=== PATIENT | female | born 1995 | race African-American/Black ===

== ENCOUNTER 2023-06-30 12:00 | Emergency (ER) | payer MEDICAID, OTHER ==
[~2023-06-30] VITALS: Ht 170.2 cm; Wt 70.5 kg
[2023-06-30 12:32] LABS: Urine Bacteria None Seen /hpf (None Seen)
[2023-06-30 12:44] VITALS: BP 149/93; PULSE 72; RESP 18; TEMP 97.4; O2SAT 97
[2023-06-30 12:53] LABS: Urine Blood Negative /uL (Negative); Urine Budding Yeast OCCASIONAL /hpf (None Seen); Urine Clarity Turbid (Clear); Urine Color Yellow (Yellow); Urine Mucus FEW (None Seen); Urine Protein, UAD TRACE (Negative); Urine Specific Gravity 1.032 (1.001-1.035); Urine Urobilinogen Normal (Negative); Urine WBC 8 /hpf (0 - 5)
== END 2023-06-30 13:36 | disposition home or self-care (01) ==
LOC: ER 12:00
DX: R10.2 Pelvic and perineal pain (principal); Z32.02 Encounter for pregnancy test, result negative
CPT/HCPCS: 36415; 81001; 81025; 84702

== ENCOUNTER 2023-07-18 11:47 | Emergency (ER) | payer MEDICAID ==
[~2023-07-18] VITALS: Ht 170.2 cm; Wt 71.0 kg
[2023-07-18 13:35] VITALS: BP 139/73; PULSE 85; RESP 16; TEMP 98.7; O2SAT 98
[2023-07-18 14:25] LABS: Urine Bacteria None Seen /hpf (None Seen)
[2023-07-18 14:59] LABS: Urine Blood Negative /uL (Negative); Urine Clarity Clear (Clear); Urine Color Light-Yellow (Yellow); Urine Protein, UAD Negative (Negative); Urine Specific Gravity 1.026 (1.001-1.035); Urine Urobilinogen Normal (Negative); Urine WBC <1 /hpf (0 - 5); Urine pH 5.5 (5.0-9.0)
== END 2023-07-18 15:10 | disposition home or self-care (01) ==
LOC: ER 11:47
DX: Z32.02 Encounter for pregnancy test, result negative (principal); R10.2 Pelvic and perineal pain
CPT/HCPCS: 36415; 81001; 84702

== ENCOUNTER 2023-08-14 12:35 | Emergency (ER) | payer MEDICAID ==
[~2023-08-14] VITALS: Ht 170.2 cm; Wt 70.9 kg
[2023-08-14 12:36] VITALS: BP 119/78; PULSE 93; RESP 18; O2SAT 99
[2023-08-14] MEDS ORDERED: LIDO5DIS21 TOP (14:17)
[2023-08-14] MEDS ORDERED: ACETAMINOPHEN 325 MG TAB PO ONE (14:30)
[2023-08-14] MEDS ORDERED: LIDOCAINE 5% TOPICAL PATCH TOP ONE (14:30)
[2023-08-14] MEDS ORDERED: IBUPROFEN 400 MG TAB PO ONE (14:30)
[2023-08-14 14:37] LABS: Urine Bacteria None Seen /hpf (None Seen)
[2023-08-14 14:53] LABS: Urine Blood Negative /uL (Negative); Urine Clarity Turbid (Clear); Urine Color Yellow (Yellow); Urine Mucus FEW (None Seen); Urine Protein, UAD 1+ (Negative); Urine Specific Gravity 1.035 (1.001-1.035); Urine Urobilinogen Normal (Negative); Urine WBC 1 /hpf (0 - 5)
== END 2023-08-14 16:22 | disposition left against medical advice (07) ==
LOC: ER 12:35
DX: S29.012A Strain of muscle and tendon of back wall of thorax, initial encounter (principal); E86.0 Dehydration; F17.290 Nicotine dependence, other tobacco product, uncomplicated; X58.XXXA Exposure to other specified factors, initial encounter; Y93.89 Activity, other specified; Y92.89 Other specified places as the place of occurrence of the external cause; Y99.8 Other external cause status
CPT/HCPCS: 81001

== ENCOUNTER 2023-09-29 11:37 | Emergency (ER) | payer MEDICAID ==
[~2023-09-29] VITALS: Ht 170.2 cm; Wt 69.6 kg
[~2023-09-29 11:37] MED LIST: LIDO5DIS21 TOP
[2023-09-29 13:24] LABS: Urine Bacteria FEW /hpf (None Seen); Urine Blood Negative /uL (Negative); Urine Clarity Cloudy (Clear); Urine Color Yellow (Yellow); Urine Mucus FEW (None Seen); Urine Protein, UAD TRACE (Negative); Urine Specific Gravity 1.022 (1.001-1.035); Urine Urobilinogen Normal (Negative); Urine WBC 6 /hpf (0 - 5)
[2023-09-29 13:42] VITALS: PULSE 91; RESP 16; O2SAT 99
[2023-09-29 14:42] VITALS: BP 130/75; PULSE 86; RESP 16; TEMP 98.1; O2SAT 99
== END 2023-09-29 14:40 | disposition home or self-care (01) ==
LOC: ER 11:37
DX: O26.891 Other specified pregnancy related conditions, first trimester (principal); R10.2 Pelvic and perineal pain; Z3A.11 11 weeks gestation of pregnancy
CPT/HCPCS: 36415; 76801; 81001; 84702

== ENCOUNTER 2024-01-24 11:39 | Emergency (ER) | payer MEDICAID ==
[~2024-01-24] VITALS: Ht 170.2 cm; Wt 83.8 kg
[2024-01-24 12:26] VITALS: BP 125/64; PULSE 86; RESP 19; TEMP 97.7; O2SAT 99
[2024-01-24] MEDS ORDERED: METH4PAK PO (13:07)
--- NOTE | 2024-01-24 13:07 | ED.PDOC ---
Eye-HPI HPI Comments A 28 YEAR OLD FEMALE PRESENTS TO THE ED WITH COMPLAINT OF NASAL CONGESTION. PATIENT STATES SHE HAS BEEN EXPERIENCING NASAL CONGESTION FOR THE PAST 1 WEEK. PATIENT NOTES SHE IS CURRENTLY 24 WEEKS . PATIENT DENIES FEVER, CHILLS, SHORTNESS OF BREATH, CHEST PAIN, ABDOMINAL PAIN, NAUSEA, VOMITING, HEADACHE, OR OTHER COMPLAINTS. NO OTHER SYMPTOMS OR MODIFYING FACTORS AT THIS TIME. PATIENT IS ALERT, ORIENTED X 4, AND HAS STEADY GAIT. Chief Complaint: Sore Throat Time Seen by MD: 11:51 Primary Care Provider: unknown Reviewed Notes: Nurses Notes, Medications, Allergies Allergies: Coded Allergies: NO KNOWN ALLERGIES (Unverified , 06/30/23) Home Meds Active Scripts Methylprednisolone (Medrol Dosepak) 4 Mg Jignesh, 4 MG PO UD, #21 TAB UAD Prov:MARELY MELGAR 01/24/24 Lidocaine (LIDODERM 5% TOPICAL PATCH) 1 Patch Ph, 1 PATCH TOP DAILY, #30 PATCH 1 Refill Prov:ESTEVAN SHARIF MD 08/14/23 Information Source: Patient Mode of Arrival: Ambulatory Timing: Days Duration: Since onset, Days Prehospital treatment: None Lids: Normal Conjunctiva: Normal Cornea: Normal Pupils: Normal EOM: Normal Fundus: Normal Slit lamp exam: Normal Anterior chamber: Normal Mouth: Normal ENT Ear Exam: Normal, Normal, Normal Nose: Normal Sinuses: Normal Oropharynx: Normal Onset: Spontaneous Throat Exposed to: None History of: None Last Tetanus: Unknown Modifying factors: Nothing Associated signs and symptoms: Nasal Symptoms Past Medical History PAST MEDICAL HISTORY: Denies Surgical History: Denies all surgeries SENIOR PARTNER History: No Pertinent SENIOR PARTNER History Family History Family History: Reviewed,noncontributory to illness Social History Smoker: Non-Smoker, Other Alcohol: Heavy Drugs: Denies Drug Use Lives In: Home Constitutional: denies: chills, diaphoresis, fatigue, fever, malaise, sweats, weakness, others EENTM: reports: nose congestion; denies: blurred vision, double vision, ear bleeding, ear discharge, ear drainage, ear pain, ear ringing, eye pain, eye redness, hearing loss, mouth pain, mouth swelling, nasal discharge, nose bleeding, nose pain, photophobia, tearing, throat pain, throat swelling, voice changes, others Respiratory: denies: cough, hemoptysis, orthopnea, SOB at rest, shortness of breath, SOB with excertion, stridor, wheezing, others Cardiovascular: denies: chest pain, dizzy spells, diaphoresis, Dyspnea on exertion, edema, irregular heart beat, left arm pain, lightheadedness, palpitations, PND, syncope, others Gastrointestinal: denies: abdomen distended, abdominal pain, blood streaked bowels, constipated, diarrhea, dysphagia, difficulty swallowing, hematemesis, melena, nausea, poor appetite, poor fluid intake, rectal bleeding, rectal pain, vomiting, others Genitourinary: reports: ; denies: abnormal vagina bleeding, burning, dyspareunia, dysuria, flank pain, frequency, hematuria, incontinence, pain, vagina discharge, urgency, others Neurological: denies: dizziness, fainting, headache, left sided numbness, left sided weakness, numbness, paresthesia, pre-existing deficit, right sided numbness, right sided weakness, seizure, speech problems, tingling, tremors, w eakness, others Musculoskeletal: denies: back pain, gout, joint pain, joint swelling, muscle pain, muscle stiffness, neck pain, others Integumetry: denies: bruises, change in color, change in hair/nails, dryness, laceration, lesions, lumps, rash, wounds, others Allergic/Immunocompromised: denies: Difficulty Healing, Frequent Infections, Hives, Itching, others Hematologic/Lymphatic: denies: anemia, blood clots, easy bleeding, easy bruising, swollen glands, others Endocrine: denies: excessive hunger, excessive sweating, excessive thirst, excessive urination, flushing, intolerance to cold, intolerance to heat, unexplained weight gain, unexplained weight loss, others Psychiatric: denies: anxiety, bipolar disorder, depression, hopeless, panic disorder, schizophrenia, sleepless, suicidal, others All Other Systems: Reviewed and Negative Physical Exam General Appearance: No Apparent Distress, Normal HEENT: Normal ENT Inspection, Pharynx Normal, TMs Normal, Other (NASAL CONGESTION WITH POST NASAL DRIP. ) Neck: Full Range of Motion, Non-Tender, Normal, Normal Inspection Respiratory: Chest Non-Tender, Lungs Clear, No Accessory Muscle Use, No Respi ratory Distress, Normal Breath Sounds Cardiovascular: No Edema, No JVD, No Murmur, No Gallop, Normal Peripheral Pulses, Regular Rate/Rhythm Breast Exam: Deferred Gastrointestinal: No Organomegaly, Non Tender, No Pulsatile Mass, Normal Bowel Sounds, Soft Genitalia: Deferred Pelvic: Deferred Rectal: Deferred Extremities: No calf tenderness, Normal capillary refill, Normal inspection, Normal range of motion, Non-tender, No pedal edema Musculoskeletal : Apperance: Normal Neurologic: Alert, philosophy instructor II-XII nml as Tested, No Motor Deficits, Normal Affect, Normal Mood, No Sensory Deficits Cerebellar Function: Normal Reflexes: Normal Skin: Dry, Normal Color, Warm Peripheral Pulses: 2+ carotid (R), 2+ carotid (L) Lymphatic: No Adenopathy Was a procedure done? Was a procedure done?: No EENT DIFF Eye: N/A Ear: Otitis Media, Pharyngitis, Sinusitis Nose: N/A Mouth: N/A Sore Throat: N/A X-Ray, Labs, Meds, VS Vital Signs Date Time Temp Pulse Resp B/P (MAP) Pulse Ox O2 Delivery O2 Flow Rate FiO2 01/24/24 12:26 86 19 99 Room Air 01/24/24 12:26 97.7 86 19 125/64 (84) 99 97.7 01/24/24 11:53 97.7 86 19 125/64 (84) 99 X-Ray, Labs, Meds, VS Comment EXTERNAL MEDICAL RECORDS REVIEWED: [NONE] INDEPENDENT HISTORIANS: [NONE] SOCIAL DETERMINANTS OF HEALTH: [NONE] LABS ORDERED: NONE REVIEWED AND INTERPRETED RESULTS: NONE IMAGING ORDERED: NONE TREATMENTS ORDERED: NONE PROCEDURES PERFORMED: NONE CRITICAL CARE TIME: NONE I HAVE DISCUSSED THE PATIENT WITH THE ATTENDING PHYSICIAN DR. HAMILTON AND HE AGREES WITH THE PATIENT'S PLAN OF CARE AND DISPOSITION. BASED ON HISTORY OF PRESENT ILLNESS, AND PHYSICAL EXAM, PATIENT WILL BE DISCHARGED HOME. DISCUSSED PLAN FOR DISCHARGE HOME WITH RX [MEDROL DOSE PACK]. MEDICATION WARNINGS GIVEN. SHARED DECISION MAKING: PATIENT INSTRUCTED TO FOLLOW UP WITH PRIMARY CARE PROVIDER IN 1-2 DAYS FOR RE-EVALUATION OF SYMPTOMS. PATIENT VERBALIZES UNDERSTANDING TO RETURN TO ED FOR NEW OR WORSENING SYMPTOMS OR IF FOLLOW UP WITH PCP CANNOT BE OBTAINED. PATIENT FEELS COMFORTABLE GOING HOME AT THIS TIME. ALL QUESTIONS ADDRESSED AT TIME OF DISCHARGE. Time of 1ST Reevaluation: 13:10 Reevaluation 1ST: Improved Patient Education/Counseling: Diagnosis, Treatment, Need For Follow Up Family Education/Counseling: Diagnosis, Treatment, Need For Follow Up Medical Screening: No EMC Exist At This Time Departure 1 Departure Time of Disposition: 13:20 Impression: Primary Impression: Nasal congestion Disposition: HOME / SELF CARE / HOMELESS Condition: Stable Additional Instructions: FOLLOW-UP WITH PCP IN 1 TO 2 DAYS. TAKE MEDICATIONS PRESCRIBED. RETURN TO ED FOR ANY NEW OR WORSENING SYMPTOMS. e-Prescriptions Methylprednisolone (Medrol Dosepak) 4 Mg Jignesh 4 MG PO UD, #21 TAB UAD Prov: MARELY MELGAR 01/24/24 Discharged With: Self, Relative Critical Care Note Critical Care Time?: No Stability Stability form required: No I personally scribed for MARELY MELGAR ([email or web address]) on 01/24/24 at 13:07. Electronically submitted by Evan Steele ([email or web address]). MARELY MELGAR Jan 24, 2024 13:07
== END 2024-01-24 13:21 | disposition home or self-care (01) ==
LOC: ER 11:39
DX: O99.512 Diseases of the respiratory system complicating pregnancy, second trimester (principal); R09.81 Nasal congestion; F10.10 Alcohol abuse, uncomplicated; Z3A.24 24 weeks gestation of pregnancy

== ENCOUNTER 2024-02-04 14:40 | Emergency (ER) | payer MEDICAID ==
[~2024-02-04] VITALS: Ht 170.2 cm; Wt 87.1 kg
[~2024-02-04 14:40] MED LIST changes: +METH4PAK PO
--- NOTE | 2024-02-04 16:13 | ED.PDOC ---
Eye-HPI HPI Comments 28-year-old female complaining of right-sided lower molar tooth pain times 3-4 days. States over the last few days she has been having hard time sleeping in the pain is radiating to her right ear. States she was a crack in the tooth and has not seen dentist yet. Patient states she was also seven months . Chief Complaint: Earache Time Seen by MD: 15:31 Primary Care Provider: ? Reviewed Notes: Nurses Notes Allergies: Coded Allergies: NO KNOWN ALLERGIES (Unverified , 06/30/23) Home Meds Active Scripts Methylprednisolone (Medrol Dosepak) 4 Mg Jignesh, 4 MG PO UD, #21 TAB UAD Prov:MARELY MELGAR 01/24/24 Lidocaine (LIDODERM 5% TOPICAL PATCH) 1 Patch Ph, 1 PATCH TOP DAILY, #30 PATCH 1 Refill Prov:ESTEVAN SHARIF MD 08/14/23 Information Source: Patient Mode of Arrival: Ambulatory Past Medical History PAST MEDICAL HISTORY: Denies Surgical History: Denies all surgeries SECURITY SYSTEMS TECHNICIAN History: No Pertinent SECURITY SYSTEMS TECHNICIAN History Family History Family History: Reviewed,noncontributory to illness Social History Smoker: Non-Smoker, Other Alcohol: Heavy Drugs: Denies Drug Use Lives In: Home Constitutional: denies: chills, diaphoresis, fatigue, fever, malaise, sweats, weakness, others EENTM: reports: eye pain, mouth pain, mouth swelling; denies: blurred vision, double vision, ear bleeding, ear discharge, ear drainage, ear pain, ear ringing, eye redness, hearing loss, nasal discharge, nose bleeding, nose congestion, nose pain, photophobia, tearing, throat pain, throat swelling, voice changes, others Cardiovascular: denies: chest pain, dizzy spells, diaphoresis, Dyspnea on exertion, edema, irregular heart beat, left arm pain, lightheadedness, palpitations, PND, syncope, others Gastrointestinal: denies: abdomen distended, abdominal pain, blood streaked bowels, constipated, diarrhea, dysphagia, difficulty swallowing, hematemesis, melena, nausea, poor appetite, poor fluid intake, rectal bleeding, rectal pain, vomiting, others Genitourinary: denies: abnormal vagina bleeding, burning, dyspareunia, dysuria, flank pain, frequency, hematuria, incontinence, pain, , vagina discharge, urgency, others Neurological: denies: dizziness, fainting, headache, left sided numbness, left sided weakness, numbness, paresthesia, pre-existing deficit, right sided numbness, right sided weakness, seizure, speech problems, tingling, tremors, weakness, others Musculoskeletal: denies: back pain, gout, joint pain, joint swelling, muscle pain, muscle stiffness, neck pain, others Integumetry: denies: bruises, change in color, change in hair/nails, dryness, laceration, lesions, lumps, rash, wounds, others Allergic/Immunocompromised: denies: Difficulty Healing, Frequent Infections, Hives, Itching, others Physical Exam General Appearance: No Apparent Distress, Normal HEENT: Normal ENT Inspection, Pharynx Normal, TMs Normal, Other (Cracked noted in tooth number 30) Neck: Full Range of Motion, Non-Tender, Normal, Normal Inspection Respiratory: Chest Non-Tender, Lungs Clear, No Accessory Muscle Use, No Respiratory Distress, Normal Breath Sounds Cardiovascular: No Edema, No JVD, No Murmur, No Gallop, Normal Peripheral P ulses, Regular Rate/Rhythm Breast Exam: Deferred Gastrointestinal: No Organomegaly, Non Tender, No Pulsatile Mass, Normal Bowel Sounds, Soft Genitalia: Deferred Pelvic: Deferred Rectal: Deferred Extremities: No calf tenderness, Normal capillary refill, Normal inspection, Normal range of motion, Non-tender, No pedal edema Musculoskeletal : Apperance: Normal Neurologic: Alert, histotechnician II-XII nml as Tested, No Motor Deficits, Normal Affect, Normal Mood, No Sensory Deficits Cerebellar Function: Normal Reflexes: Normal Skin: Dry, Normal Color, Warm Lymphatic: No Adenopathy Was a procedure done? Was a procedure done?: No EENT DIFF Eye: N/A Ear: Cerumen Impaction, Foreign Body, Otitis Externa Mouth: Herpes Simplex, Thrush X-Ray, Labs, Meds, VS Vital Signs Date Time Temp Pulse Resp B/P (MAP) Pulse Ox O2 Delivery O2 Flow Rate FiO2 02/04/24 15:20 98.7 91 18 129/74 (92) 98 X-Ray, Labs, Meds, VS Comment Imaging: X-rays and CT scans were reviewed and interpreted by this provider, imaging shows no fractures and no pathological disease. Pending radiology review. Laboratory: Labs reviewed and interpreted by this provider. No significant abnormalities noted. Patient has prior medical visits reviewed. Med reconciliation performed Vital signs reviewed Time of 1ST Reevaluation: 16:19 Reevaluation 1ST: Improved Patient Education/Counseling: Diagnosis, Treatment, Need For Follow Up (Follow up with dentist next available appointment. Follow up with emergency department if symptoms worse in the next 24-48 hours.) Family Education/Counseling: Diagnosis, Treatment Departure 1 Departure Time of Disposition: 16:19 Impression: Primary Impression: Dental caries Disposition: HOME / SELF CARE / HOMELESS Condition: Fair e-Prescriptions Amoxicillin & Pot Clavulanate (AUGMENTIN TABLET) 875 Mg Tb 875 MG PO BID for 10 Days, #20 TAB Prov: ATA WAGNER 02/04/24 Discharged With: Self Critical Care Note Critical Care Time?: No Stability Stability form required: No Heart Score Heart Score: Heart Score Response (Comments) Value History N/A 0 EKG N/A 0 Age N/A 0 Risk Factors N/A 0 Troponin N/A 0 Total 0 ATA WAGNER Feb 04, 2024 16:13
[2024-02-04] MEDS ORDERED: AUG875T PO (16:19)
[2024-02-04 17:21] VITALS: BP 126/84; PULSE 76; RESP 18; TEMP 98.6; O2SAT 99
== END 2024-02-04 17:23 | disposition home or self-care (01) ==
LOC: ER 14:40
DX: K02.9 Dental caries, unspecified (principal); Z79.899 Other long term (current) drug therapy